=== PATIENT | female | born 1965 | race African-American/Black ===

== ENCOUNTER 2016-05-27 18:32 | Emergency (ER) | payer OTHER ==
[~2016-05-27] VITALS: Ht 165.1 cm; Wt 90.3 kg
[~2016-05-27 18:32] MED LIST: ACETAMINOPHEN325 M1; ALEVE220 M1; CIPROFLOXACIN500 M1 PO; DUREZOL5 ML; FLEXERIL PO; HYDROCHLOROTH12.5 M1 PO; HYDROCODONE-AC120 ML PO; IBUPROFEN 800800 MG PO; IRON325 PO; KLOR-CON 1010 MEQ PO; MAGNESIUM OXID400 MG PO; MUCINEX600 MG PO; NORCO 5-325 TA1 EACH PO; NORFLEX100 MG PO; PHENERGAN-CODE120 ML PO; PROMETHAZINE-C120 ML PO; PROVENTIL HFA6.7 G1 INH; ROBITUSSIN15 MG/5 M1 PO; TOPROL XL25 MG PO; ULTRAM 50MG TAB50 MG PO; XARELTO15 MG PO; ZPAK PO; [UNRECOGNIZED DRUG - OTHER]; [UNRECOGNIZED DRUG - OTHER] PO; [UNRECOGNIZED DRUG - OTHER] PO
[2016-05-27] MEDS ORDERED: PENICILLIN V P500 MG PO (18:51)
[2016-05-27] MEDS ORDERED: MOBIC15 MG PO (18:52)
== END 2016-05-27 19:35 | disposition home or self-care (01) ==
LOC: ER 18:32
DX: K02.9 Dental caries, unspecified (principal); Z88.2 Allergy status to sulfonamides; Z88.8 Allergy status to other drugs, medicaments and biological substances

== ENCOUNTER 2016-09-13 07:08 | Emergency (ER) | payer OTHER ==
[~2016-09-13] VITALS: Ht 165.1 cm; Wt 88.0 kg
[~2016-09-13 07:08] MED LIST changes: +MOBIC15 MG PO; +PENICILLIN V P500 MG PO
[2016-09-13] MEDS ORDERED: PATADAY2.5 ML OP (08:24)
== END 2016-09-13 09:18 | disposition home or self-care (01) ==
LOC: ER 07:08
DX: H10.13 Acute atopic conjunctivitis, bilateral (principal); Z88.1 Allergy status to other antibiotic agents; Z88.2 Allergy status to sulfonamides

== ENCOUNTER → 2016-09-21 | Outpatient (CLI) | payer OTHER ==
[~2016-09-21] MED LIST changes: +PATADAY2.5 ML OP
== END ==
LOC: CAT 08:01
DX: J32.4 Chronic pansinusitis (principal)

== ENCOUNTER 2017-02-05 15:50 | Inpatient (IN) | payer OTHER ==
[~2017-02-05] VITALS: Ht 165.1 cm; Wt 95.7 kg
[2017-02-05 15:51] VITALS: BP 135/81
[2017-02-05] MEDS ORDERED: PEPCID20 MG PO (16:24)
[2017-02-05] MEDS ORDERED: CALCIUM 600 +1 EAC1 PO (16:25)
[2017-02-05] MEDS ORDERED: ZYRTEC10 M5 PO (16:26)
[2017-02-05 16:37] LABS: HEMOGLOBIN 6.8 gm/dL (12.0-15.0); RDW 19.6 % (10.5-14.5); WBC 6.4 thou/uL (4.0-11.0)
[2017-02-05 16:38] LABS: HEMATOCRIT 21.6 % (37.0-47.0); MCH 20.4 pg (26.0-34.0); MCHC 31.4 g/dL (28.0-37.0); MCV 65.1 fL (80.0-100.0); RBC 3.32 mil/uL (4.20-5.00)
[2017-02-05 16:43] LABS: CALCIUM 9.2 mg/dL (8.5-10.1); CREATININE 1.3 mg/dL (0.6-1.0)
[2017-02-05 16:49] LABS: APTT 21.4 Seconds (24.5-32.8); PROTIME 10.2 Seconds (9.3-11.4)
[2017-02-05 18:11] VITALS: BP 139/89
[2017-02-05 19:34] VITALS: BP 158/73
[2017-02-05 20:10] VITALS: BP 161/93
[2017-02-05 23:25] VITALS: BP 136/83
[2017-02-05 23:54] VITALS: BP 145/86; BP 146/86
[2017-02-06 04:23] VITALS: BP 154/78
[2017-02-06 07:56] LABS: HEMATOCRIT 25.6 % (37.0-47.0); HEMOGLOBIN 8.2 gm/dL (12.0-15.0); MCH 22.1 pg (26.0-34.0); MCHC 31.9 g/dL (28.0-37.0); MCV 69.2 fL (80.0-100.0); RBC 3.7 mil/uL (4.20-5.00); RDW 22.4 % (10.5-14.5); WBC 5.7 thou/uL (4.0-11.0)
[2017-02-06 09:31] VITALS: BP 154/78
== END 2017-02-06 13:02 | disposition home or self-care (01) | DRG 812 ==
LOC: ER 15:50 → 2N 17:27 → EROBS 17:27 → 2N 20:12
PROVIDERS: Emergency Medicine; Family Medicine
PROC: 30233N1 Transfusion of Nonautologous Red Blood Cells into Peripheral Vein, Percutaneous Approach (ICD-10-PCS; principal; 2017-02-05)
DX: D64.9 Anemia, unspecified (principal); M19.90 Unspecified osteoarthritis, unspecified site; N93.9 Abnormal uterine and vaginal bleeding, unspecified; Z86.711 Personal history of pulmonary embolism; Z88.2 Allergy status to sulfonamides; Z88.8 Allergy status to other drugs, medicaments and biological substances
CPT/HCPCS: 10081

== ENCOUNTER → 2017-02-07 | Outpatient (CLI) | payer OTHER ==
[~2017-02-07] MED LIST changes: +CALCIUM 600 +1 EAC1 PO; +PEPCID20 MG PO; +ZYRTEC10 M5 PO
== END ==
LOC: ULTRA 12:14
DX: I82.402 Acute embolism and thrombosis of unspecified deep veins of left lower extremity (principal); Z86.711 Personal history of pulmonary embolism

== ENCOUNTER → 2017-02-18 | Outpatient (CLI) | payer OTHER ==
[~2017-02-18] MED LIST changes: +AMOXICILLIN 50500 MG PO; +AVAPRO 150 MG150 MG PO; +COLACE100 MG PO; +GLUCOPHAGE1000 MG PO; +HYDROCHLOROTH12.5 M2 PO; +MOBIC7.5 MG PO; +NAPROSYN500 MG PO; +PENICILLIN VK500 M1 PO; +POTASSIUM99 M1 PO; +PRILOSEC OTC20 MG PO; +ROBAXIN500 MG PO; +TOPROL XL100 MG PO
== END ==
LOC: ULTRA 09:15
DX: I82.402 Acute embolism and thrombosis of unspecified deep veins of left lower extremity (principal)

== ENCOUNTER → 2017-03-18 | Outpatient (CLI) | payer OTHER | LOC: ULTRA 11:36 | DX: I82.4Z2 Acute embolism and thrombosis of unspecified deep veins of left distal lower extremity (principal) ==

== ENCOUNTER → 2017-03-22 | Outpatient (CLI) | payer OTHER | LOC: ULTRA 09:38 | DX: I82.4Z1 Acute embolism and thrombosis of unspecified deep veins of right distal lower extremity (principal) ==

== ENCOUNTER 2017-06-04 10:51 | Emergency (ER) | payer OTHER ==
[~2017-06-04] VITALS: Ht 165.1 cm; Wt 97.1 kg
[~2017-06-04 10:51] MED LIST changes: -AMOXICILLIN 50500 MG PO; -AVAPRO 150 MG150 MG PO; -COLACE100 MG PO; -GLUCOPHAGE1000 MG PO; -HYDROCHLOROTH12.5 M2 PO; -MOBIC7.5 MG PO; -NAPROSYN500 MG PO; -PENICILLIN VK500 M1 PO; -POTASSIUM99 M1 PO; -PRILOSEC OTC20 MG PO; -ROBAXIN500 MG PO; -TOPROL XL100 MG PO
[2017-06-04] MEDS ORDERED: PENICILLIN VK500 M1 PO (11:14)
[2017-06-04] MEDS ORDERED: NAPROSYN500 MG PO (11:14)
[2017-06-04] MEDS ORDERED: ROBAXIN500 MG PO (11:14)
== END 2017-06-04 11:39 ==
LOC: ER 10:51
DX: K04.7 Periapical abscess without sinus (principal); M43.6 Torticollis; M26.601 Right temporomandibular joint disorder, unspecified; I10 Essential (primary) hypertension; Z88.2 Allergy status to sulfonamides; Z88.8 Allergy status to other drugs, medicaments and biological substances

== ENCOUNTER 2017-07-10 09:49 | Emergency (ER) | payer OTHER ==
[~2017-07-10] VITALS: Ht 165.1 cm; Wt 85.7 kg
[~2017-07-10 09:49] MED LIST changes: +NAPROSYN500 MG PO; +PENICILLIN VK500 M1 PO; +ROBAXIN500 MG PO
[2017-07-10] MEDS ORDERED: AMOXICILLIN 50500 MG PO (10:07)
[2017-07-10] MEDS ORDERED: MOBIC7.5 MG PO (10:07)
== END 2017-07-10 10:40 | disposition home or self-care (01) ==
LOC: ER 09:49
DX: K02.9 Dental caries, unspecified (principal); I10 Essential (primary) hypertension; Z88.8 Allergy status to other drugs, medicaments and biological substances; Z88.2 Allergy status to sulfonamides

== ENCOUNTER 2017-11-18 11:17 | Emergency (ER) | payer OTHER ==
[~2017-11-18] VITALS: Ht 165.1 cm; Wt 93.9 kg
--- NOTE | ~2017-11-18 | EKG ---
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
[~2017-11-18 11:17] MED LIST changes: +AMOXICILLIN 50500 MG PO; +MOBIC7.5 MG PO
[2017-11-18] MEDS ORDERED: POTASSIUM99 M1 PO (11:49)
[2017-11-18] MEDS ORDERED: TOPROL XL100 MG PO (11:50)
[2017-11-18] MEDS ORDERED: GLUCOPHAGE1000 MG PO (11:50)
[2017-11-18] MEDS ORDERED: COLACE100 MG PO (11:50)
[2017-11-18] MEDS ORDERED: AVAPRO 150 MG150 MG PO (11:51)
[2017-11-18] MEDS ORDERED: IRON325 PO (11:51)
[2017-11-18] MEDS ORDERED: HYDROCHLOROTH12.5 M2 PO (11:51)
[2017-11-18] MEDS ORDERED: PRILOSEC OTC20 MG PO (11:52)
[2017-11-18 12:03] LABS: HEMATOCRIT 39.7 % (37.0-47.0); HEMOGLOBIN 13.1 gm/dL (12.0-15.0); MCH 26.4 pg (26.0-34.0); MCV 80.1 fL (80.0-100.0); RBC 4.95 mil/uL (4.20-5.00); RDW 13.6 % (10.5-14.5); WBC 4.6 thou/uL (4.0-11.0)
[2017-11-18 12:14] LABS: ANION GAP 3 mmol/L (7-16); BUN 10 mg/dL (7-18); CALCIUM 9.6 mg/dL (8.5-10.1); CHLORIDE 102 mmol/L (98-107); CO2 29 mmol/L (21-32); GLUCOSE 116 mg/dL (74-106); POTASSIUM 3.8 mmol/L (3.5-5.1); SODIUM 134 mmol/L (136-145)
[2017-11-18 12:23] LABS: TROPONIN-I <0.06 ng/mL (<0.06)
[2017-11-18 12:24] LABS: APTT 30.7 Seconds (24.5-32.8); INR 1.2; PROTIME 12.7 Seconds (9.3-11.4)
[2017-11-18] MEDS ORDERED: NORCO 5-325 TA1 EACH PO (14:27)
== END 2017-11-18 14:34 | disposition home or self-care (01) ==
LOC: ER 11:17
PROVIDERS: Emergency Medicine
DX: I10 Essential (primary) hypertension (principal); R06.00 Dyspnea, unspecified; E04.1 Nontoxic single thyroid nodule; Z88.1 Allergy status to other antibiotic agents; Z88.2 Allergy status to sulfonamides; Z86.718 Personal history of other venous thrombosis and embolism; Z90.710 Acquired absence of both cervix and uterus

== ENCOUNTER → 2017-11-25 | Outpatient (CLI) | payer OTHER ==
[~2017-11-25] MED LIST changes: +AVAPRO 150 MG150 MG PO; +COLACE100 MG PO; +GLUCOPHAGE1000 MG PO; +HYDROCHLOROTH12.5 M2 PO; +POTASSIUM99 M1 PO; +PRILOSEC OTC20 MG PO; +TOPROL XL100 MG PO
== END ==
LOC: ULTRA 10:59
DX: E04.1 Nontoxic single thyroid nodule (principal); D68.59 Other primary thrombophilia; I10 Essential (primary) hypertension; Z68.34 Body mass index [BMI] 34.0-34.9, adult

== ENCOUNTER 2017-12-02 18:08 | Emergency (ER) | payer OTHER ==
[~2017-12-02] VITALS: Ht 165.1 cm; Wt 93.9 kg
[2017-12-02] MEDS ORDERED: PENICILLIN V P500 MG PO (19:39)
[2017-12-02] MEDS ORDERED: NORCO 5-325 TA1 EACH PO (19:39)
== END 2017-12-02 20:03 | disposition home or self-care (01) ==
LOC: ER 18:08
DX: K08.89 Other specified disorders of teeth and supporting structures (principal); R51 Headache; I10 Essential (primary) hypertension; Z88.8 Allergy status to other drugs, medicaments and biological substances; Z88.2 Allergy status to sulfonamides; Z90.710 Acquired absence of both cervix and uterus; Z86.718 Personal history of other venous thrombosis and embolism

== ENCOUNTER 2018-03-16 17:09 | Emergency (ER) | payer OTHER ==
[~2018-03-16] VITALS: Ht 165.1 cm; Wt 89.8 kg
[2018-03-16] MEDS ORDERED: ASPIRIN325 PO (17:23)
[2018-03-16 18:14] LABS: ABSOLUTE NEUTROPHILS 2.8 thou/uL (1.4-8.2); BASOPHILS 0.3 % (0.0-2.0); EOSINOPHILS 0.3 % (0.0-3.0); HEMATOCRIT 38.2 % (37.0-47.0); HEMOGLOBIN 12.8 gm/dL (12.0-15.0); LYMPHOCYTES 38.9 % (24.0-44.0); MCH 26.3 pg (26.0-34.0); MCHC 33.5 g/dL (28.0-37.0); MCV 78.4 fL (80.0-100.0); MONOCYTES 6.5 % (1.0-8.0); PLATELET COUNT 212 thou/uL (150-400); RBC 4.87 mil/uL (4.20-5.00); RDW 14.4 % (10.5-14.5); WBC 5.2 thou/uL (4.0-11.0)
[2018-03-16 18:20] LABS: ANION GAP 6 mmol/L (7-16); BUN 14 mg/dL (7-18); CALCIUM 9.3 mg/dL (8.5-10.1); CHLORIDE 103 mmol/L (98-107); CO2 31 mmol/L (21-32); CREATININE 1.2 mg/dL (0.6-1.0); GLUCOSE 160 mg/dL (74-106); POTASSIUM 3.2 mmol/L (3.5-5.1); SODIUM 140 mmol/L (136-145)
[2018-03-16 18:30] LABS: ALBUMIN 3.2 g/dL (3.4-5.0); SGOT 19 U/L (15-37); SGPT 29 U/L (30-65); TOTAL BILIRUBIN 0.3 mg/dL (<0.1-1.0); TOTAL PROTEIN 7.8 g/dL (6.4-8.2); TROPONIN-I <0.06 ng/mL (<0.06)
[2018-03-16] MEDS ORDERED: CLONIDINE0.1 PO (19:48)
[2018-03-16] MEDS ORDERED: BUTALB-APAP-CA1 EACH PO (19:48)
[2018-03-16 20:27] VITALS: BP 162/87
--- NOTE | 2018-03-16 22:21 | EKG ---
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
== END 2018-03-16 20:27 | disposition home or self-care (01) ==
LOC: ER 17:09
PROVIDERS: Emergency Medicine
DX: E87.6 Hypokalemia (principal); G44.209 Tension-type headache, unspecified, not intractable; I10 Essential (primary) hypertension; M62.838 Other muscle spasm; E11.9 Type 2 diabetes mellitus without complications; Z86.718 Personal history of other venous thrombosis and embolism; Z90.710 Acquired absence of both cervix and uterus; Z88.8 Allergy status to other drugs, medicaments and biological substances; Z88.2 Allergy status to sulfonamides

== ENCOUNTER 2018-05-09 18:19 | Emergency (ER) | payer OTHER ==
[~2018-05-09] VITALS: Ht 165.1 cm; Wt 85.7 kg
[~2018-05-09 18:19] MED LIST changes: +ASPIRIN325 PO; +BUTALB-APAP-CA1 EACH PO; +CLONIDINE0.1 PO
[2018-05-09] MEDS ORDERED: IBUPROFEN 400400 M2 PO (19:58)
[2018-05-09] MEDS ORDERED: FLEXERIL PO (19:58)
[2018-05-09] MEDS ORDERED: NORCO 5-325 TA1 EACH PO (19:58)
[2018-05-09 20:32] VITALS: BP 180/111
== END 2018-05-09 20:34 | disposition home or self-care (01) ==
LOC: ER 18:19
DX: M25.532 Pain in left wrist (principal); M54.5 Low back pain; I10 Essential (primary) hypertension; Z88.2 Allergy status to sulfonamides; Z88.8 Allergy status to other drugs, medicaments and biological substances; Z90.710 Acquired absence of both cervix and uterus; Z86.718 Personal history of other venous thrombosis and embolism

== ENCOUNTER 2018-07-05 14:10 | Emergency (ER) | payer OTHER ==
[~2018-07-05] VITALS: Ht 165.1 cm; Wt 95.7 kg
[~2018-07-05 14:10] MED LIST changes: +IBUPROFEN 400400 M2 PO
[2018-07-05] MEDS ORDERED: CALCIUM + D SO1 EACH PO (14:29)
[2018-07-05] MEDS ORDERED: IBUPROFEN 400400 M2 PO (15:50)
[2018-07-05 17:33] VITALS: BP 134/90
[2018-07-05] MEDS ORDERED: NAPROSYN500 MG PO (17:40)
== END 2018-07-05 17:45 | disposition home or self-care (01) ==
LOC: ER 14:10
DX: M79.604 Pain in right leg (principal); I10 Essential (primary) hypertension; Z90.710 Acquired absence of both cervix and uterus; Z86.718 Personal history of other venous thrombosis and embolism; Z88.2 Allergy status to sulfonamides; Z88.8 Allergy status to other drugs, medicaments and biological substances

== ENCOUNTER 2018-09-11 01:45 | Emergency (ER) | payer OTHER ==
[~2018-09-11] VITALS: Ht 165.1 cm; Wt 95.7 kg
[~2018-09-11 01:45] MED LIST changes: +CALCIUM + D SO1 EACH PO
[2018-09-11 03:21] VITALS: BP 178/103
== END 2018-09-11 03:22 | disposition home or self-care (01) ==
LOC: ER 01:45
DX: M25.561 Pain in right knee (principal); I10 Essential (primary) hypertension; Z90.710 Acquired absence of both cervix and uterus; Z86.718 Personal history of other venous thrombosis and embolism; Z79.899 Other long term (current) drug therapy; Z88.2 Allergy status to sulfonamides; Z88.8 Allergy status to other drugs, medicaments and biological substances

== ENCOUNTER 2019-05-27 12:31 | Emergency (ER) | payer OTHER ==
[~2019-05-27] VITALS: Ht 165.1 cm; Wt 98.4 kg
[2019-05-27 13:26] LABS: ABSOLUTE NEUTROPHILS 2.2 thou/uL (1.4-8.2); BASOPHILS 1.1 % (0.0-2.0); EOSINOPHILS 1.9 % (0.0-3.0); HEMATOCRIT 38.7 % (37.0-47.0); HEMOGLOBIN 12.7 gm/dL (12.0-15.0); LYMPHOCYTES 41.2 % (24.0-44.0); MCH 26.2 pg (26.0-34.0); MCHC 32.8 g/dL (28.0-37.0); MCV 79.9 fL (80.0-100.0); MONOCYTES 6.3 % (1.0-8.0); PLATELET COUNT 223 thou/uL (150-400); POLYS 49.5 % (36.0-66.0); RBC 4.84 mil/uL (4.20-5.00); RDW 14.8 % (10.5-14.5); WBC 4.4 thou/uL (4.0-11.0)
[2019-05-27 13:35] LABS: ANION GAP 3 mmol/L (7-16); BUN 20 mg/dL (7-18); CALCIUM 9.4 mg/dL (8.5-10.1); CHLORIDE 101 mmol/L (98-107); CO2 31 mmol/L (21-32); CREATININE 1.6 mg/dL (0.6-1.0); GLUCOSE 177 mg/dL (74-106); POTASSIUM 3.5 mmol/L (3.5-5.1); SODIUM 135 mmol/L (136-145)
[2019-05-27 13:43] LABS: TROPONIN-I <0.06 ng/mL (<0.06)
[2019-05-27 15:09] VITALS: BP 144/75
--- NOTE | 2019-05-28 09:33 | EKG ---
[facility] [place] [address] ELECTROCARDIOGRAM REPORT Name: FATEMEH BRUSH Room #: DEP M.R.#: [id number] Admission: 05/27/19 Attend Phys: Discharge: 05/27/19 Date of : 67 Report #: [id number] THIS REPORT FOR: cc: Prabhakar Francisco MD, Neal A. 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
== END 2019-05-27 15:09 | disposition home or self-care (01) ==
LOC: ER 12:31
PROVIDERS: Nurse Practitioner
DX: R09.1 Pleurisy (principal); R07.89 Other chest pain; R05 Cough; I10 Essential (primary) hypertension; Z86.718 Personal history of other venous thrombosis and embolism; Z79.899 Other long term (current) drug therapy; Z79.82 Long term (current) use of aspirin

== ENCOUNTER 2019-10-28 19:06 | Emergency (ER) | payer OTHER ==
[~2019-10-28] VITALS: Ht 165.1 cm; Wt 95.3 kg
[2019-10-28] MEDS ORDERED: NORCO 10-325 T1 EACH PO (19:43)
[2019-10-28] MEDS ORDERED: PENICILLIN V P500 MG PO (19:43)
[2019-10-28 20:07] VITALS: BP 163/103
== END 2019-10-28 20:10 | disposition home or self-care (01) ==
LOC: ER 19:06
DX: K08.89 Other specified disorders of teeth and supporting structures (principal); R51 Headache; I10 Essential (primary) hypertension; E11.9 Type 2 diabetes mellitus without complications; Z86.73 Personal history of transient ischemic attack (TIA), and cerebral infarction without residual deficits; Z90.710 Acquired absence of both cervix and uterus; Z79.899 Other long term (current) drug therapy; Z79.82 Long term (current) use of aspirin; Z88.8 Allergy status to other drugs, medicaments and biological substances; Z88.2 Allergy status to sulfonamides

== ENCOUNTER 2020-11-21 01:52 | Inpatient (IN) | payer OTHER ==
[~2020-11-21] VITALS: Ht 165.1 cm; Wt 94.8 kg
[~2020-11-21 01:52] MED LIST changes: +COZAAR 25 MG TA25 M1 PO; +NORCO 10-325 T1 EACH PO
[2020-11-21 02:24] LABS: ABSOLUTE NEUTROPHILS 2.2 thou/uL (1.4-8.2); BASOPHILS 1.9 % (0.0-2.0); EOSINOPHILS 1.3 % (0.0-3.0); HEMATOCRIT 36.5 % (37.0-47.0); HEMOGLOBIN 11.8 gm/dL (12.0-15.0); LYMPHOCYTES 44.1 % (24.0-44.0); MCH 25.9 pg (26.0-34.0); MCHC 32.4 g/dL (28.0-37.0); MONOCYTES 5.3 % (1.0-8.0); PLATELET COUNT 221 thou/uL (150-400); POLYS 47.4 % (36.0-66.0); RBC 4.57 mil/uL (4.20-5.00); RDW 14.9 % (10.5-14.5); WBC 4.6 thou/uL (4.0-11.0)
[2020-11-21 02:35] LABS: CALCIUM 9.2 mg/dL (8.5-10.1); CREATININE 1.2 mg/dL (0.6-1.0); POTASSIUM 3.7 mmol/L (3.5-5.1)
[2020-11-21 02:41] LABS: ALBUMIN 3.1 g/dL (3.4-5.0); TOTAL BILIRUBIN 0.4 mg/dL (0.2-1.0); TOTAL PROTEIN 7.3 g/dL (6.4-8.2)
[2020-11-21 02:55] LABS: APTT 21.8 Seconds (24.5-32.8); INR 0.92; PROTIME 10.1 Seconds (10.5-12.1)
[2020-11-21] MEDS ORDERED: CLONIDINE HCL0.1 MG PO (04:24)
[2020-11-21] MEDS ORDERED: VALSARTAN320 MG PO (04:24)
[2020-11-21] MEDS ORDERED: HYDROCHLOROTHIA25 M1 PO (04:25)
[2020-11-21 04:26] VITALS: BP 167/104
--- NOTE | 2020-11-21 08:18 | EKG ---
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 11/21/20 0817 236 6 Taiwo Carias MD, FACC /EPI
--- NOTE | 2020-11-21 10:32 | 2DMMODE ---
[facility] [address] [facility] [place] [address] 2 D/M-MODE ECHOCARDIOGRAM Name: HIEU BRUSH Room #: 170-3 ADM IN M.R.#: [id number] Admission: 11/21/20 Attend Phys: Prabhakar Francisco MD Discharge: Date of : 67 Report #: [id number] THIS REPORT FOR: cc: Prabhakar Francisco MD, Neal A. MD Park, Jin S. MD ~ APPROVED REPORT Study performed: 11/21/2020 10:00:51 EXAM: Comprehensive 2D, Doppler, and color-flow Echocardiogram Patient Location: ER Status: routine BSA: 2.02 HR: 57 bpm BP: 148/86 mmHg Rhythm: NSR Other Information Study Quality: Adequate Indications Left arm pain/weakness. Hx: HTN, DM. 2D Dimensions IVSd: 10.91 (7-11mm) LVOT Diam: 21.00 (18-24mm) LVDd: 44.00 mm PWd: 11.00 (7-11mm) Ascending Ao: 30.00 (22-36mm) LVDs: 28.00 (25-40mm) Left Atrium: 36.00 (27-40mm) Aortic Root: 31.00 mm Volumes Left Atrial Volume (Systole) Single Plane 4CH: 36.18 mL Single Plane 2CH: 40.98 mL LA ESV Index: 21.00 mL/m2 Aortic Valve AoV Peak Tony.: 1.49 m/s AO Peak Gr.: 8.91 mmHg LVOT Max P.52 mmHg LVOT Max V: 1.06 m/s NATHANIEL Vmax: 2.26 cm2 [facility] [address] [place] [address] 2 D/M-MODE ECHOCARDIOGRAM Name: TRUDIHIEU CROWELL Room #: 170-3 [facility] IN [facility].#: [id number] Admission: 11/21/20 Attend Phys: Prabhakar Francisco, Discharge: Date of : 67 Report #: [id number] Mitral Valve E/A Ratio: 1.4 MV Decel. Time: 165.71 ms MV E Max Tony.: 0.83 m/s MV A Tony.: 0.60 m/s MV PHT: 48.06 ms IVRT: 86.51 ms Pulmonary Valve PV Peak Tony.: 0.78 m/s PV Peak Gr.: 2.46 mmHg Pulmonary Vein P Vein S: 0.52 m/s P Vein A: 0.27 m/s P Vein D: 0.35 m/s P Vein A Dur.: 120.0 msec P Vein S/D Ratio: 1.49 Tricuspid Valve TR Peak Tony.: 2.67 m/s RAP Estimate: 5.00 mmHg TR Peak Gr.: 28.45 mmHg PA Pressure: 33.00 mmHg Left Ventricle The left ventricle is normal size. There is normal LV segmental wall motion. Borderline concentric left ventricular hypertrophy. The left ventricular systolic function is normal. LVEF is 60-65%. Moderate diastolic dysfunction is present (pseudonormal filling). Right Ventricle The right ventricle is normal size. The right ventricular systolic function is normal. Atria The left atrium size is normal. The right atrium size is normal. Aortic Valve The aortic valve is normal in structure. No aortic regurgitation is present. There is no aortic valvular stenosis. Mitral Valve The mitral valve is normal in structure. Mild mitral regurgitation. No evidence of mitral valve stenosis. Tricuspid Valve The tricuspid valve is normal in structure. Trace tricuspid [facility] [address] [facility] [place] [address] 2 D/M-MODE ECHOCARDIOGRAM Name: HIEU BRUSH Room #: 170-3 ADM IN M.R.#: [id number] Admission: 11/21/20 Attend Phys: Prabhakar Francisco, Discharge: Date of : 67 Report #: [id number] regurgitation. Estiamted PAP is 30 mmHg. Pulmonic Valve The pulmonary valve is normal in structure. Trace pulmonic regurgitation. Great Vessels The aortic root is normal in size. The ascending aorta is normal in size. IVC is normal in size and collapses >50% with inspiration. Pericardium There is no pericardial effusion. <Conclusion> The left ventricle is normal size. The left ventricular systolic function is normal. Moderate diastolic dysfunction is present (pseudonormal filling). The right ventricle is normal size. The left atrium size is normal. The aortic valve is normal in structure. Mild mitral regurgitation. Trace tricuspid regurgitation. Estiamted PAP is 30 mmHg. <ELECTRONICALLY SIGNED> By: Nicolas Holland MD 11/21/201030 103 103 Nicolas Holland MD /INF
[2020-11-21] MEDS ORDERED: MELOXICAM15 MG PO (12:53)
[2020-11-21 13:03] VITALS: BP 142/74
[2020-11-21 13:14] VITALS: BP 142/79
--- NOTE | 2020-11-22 15:49 | HC ---
[facility] [place] [address] CONSULTATION Name: HIEU BRUSH Room #: 170-6 [facility] IN M.R.#: [id number] Admission: 11/21/20 Attend Phys: Prabhakar Francisco MD Discharge: 11/21/20 Date of : 67 Report #: [id number] THIS REPORT FOR: cc: Prabhakar Francisco MD, Neal A. MD [place], Roxane S. DO ~ NEUROLOGY CONSULT HISTORY OF PRESENT ILLNESS: The patient is a 54-year-old female who came to the emergency room complaining of left arm pain since 3:00 a.m. the day prior to admission. She states that it hurts whenever she lifts her arm above her head, mainly in the shoulder area. Sometimes the pain radiates down her neck. An hour and a half prior to coming to the emergency room, she decided to come to the ER when she experienced tingling in the left arm. She also developed a headache three hours prior to that. She has no double vision, blurry vision, difficulty speaking or swallowing, vertigo, lightheadedness. She did have some periodic weakness in the left upper extremity. PAST MEDICAL HISTORY: DVT, pulmonary embolus, hypertension, diabetes, anxiety. PAST SURGICAL HISTORY: Hysterectomy. MEDICATIONS: Zyrtec 10 mg daily, potassium b.i.d., metformin 1000 mg b.i.d., metoprolol XL 100 mg daily, hydrochlorothiazide 12.5 mg daily, iron 325 mg daily, aspirin 325 mg daily, calcium daily, losartan 25 mg daily. ALLERGIES: SULFA AND AMLODIPINE. VITAL SIGNS: Temperature 37.2, pulse rate 70, respiratory rate 26, blood pressure 142/74, bedside pulse oximetry 99%. LABORATORY DATA: Hematology: White blood cell count 4.6, hemoglobin 11.8, hematocrit 36.5, MCV 80, platelet count 221,000. INR 0.92. Chemistry: Sodium 138, potassium 3.7, chloride 102, carbon dioxide 28, BUN 19, creatinine 1.2, glucose 162, calcium 9.2. Liver functions normal. COVID negative. IMAGING: CT angiogram is normal with the exception of a right thyroid cyst. CT scan of the head shows no acute intracranial process. MRI of the head shows no acute noncontrast abnormalities and no acute infarction. Mild chronic white matter vascular ischemia seen. Ultrasound of the thyroid shows a prominent inferior posterior left thyroid nodule. NEUROLOGIC: Cranial nerves II-XII are grossly intact. Motor exam demonstrates symmetrical strength in all 4 extremities with tone and bulk normal. The patient has pain with range of motion of the left shoulder. Fine finger [address] [address] CONSULTATION Name: TRUDIHIEU CROWELL Room #: 170-6 [facility] IN M.R.#: [id number] Admission: 11/21/20 Attend Phys: Prabhakar Francisco MD Discharge: 11/21/20 Date of : 67 Report #: [id number] movements and toe tapping are symmetrical bilaterally. Reflexes are trace throughout. Plantar responses are flexor. Coordination demonstrates intact finger to nose. IMPRESSION: The patient's symptoms are most consistent with either cervical radiculopathy or primary shoulder pathology. The patient has had a complete stroke workup and it was completely unremarkable. Not only she had an MRI of the head, but she has had CT angiogram and echocardiogram. Echocardiogram does show moderate diastolic dysfunction and I would recommend the patient see a rectifier operator as an outpatient. With regard to the neck pain and shoulder pain, if not contraindicated, I would recommend some type of nonsteroidal anti-inflammatory as a trial for a week or two. If the patient has no improvement in her symptoms, then I would begin with perhaps an MRI of the cervical spine and if nothing can be found there, then an MRI of the shoulder. I thank you for your kind referral of the patient. <ELECTRONICALLY SIGNED> By: Chloe Hinson DO 11/22/20 1549 1205 0014 Chloe Hinson DO /nt
== END 2020-11-21 13:15 | disposition home or self-care (01) | DRG 93 ==
LOC: ER 01:52 → EROBS 03:14
PROVIDERS: Emergency Medicine; ADMIT Family Medicine; ATTEND Family Medicine
DX: R20.2 Paresthesia of skin (principal); I10 Essential (primary) hypertension; E11.9 Type 2 diabetes mellitus without complications; F41.9 Anxiety disorder, unspecified; F03.90 Unspecified dementia, unspecified severity, without behavioral disturbance, psychotic disturbance, mood disturbance, and anxiety; R51.9 Headache, unspecified; Z86.718 Personal history of other venous thrombosis and embolism; Z90.710 Acquired absence of both cervix and uterus; Z88.2 Allergy status to sulfonamides